=== PATIENT | male | born 1980 | race Two or more races ===

== ENCOUNTER 2016-10-11 08:21 | Emergency (ER) | payer BC, OTHER ==
[2016-10-11 08:25] VITALS: BP 148/82; PULSE 78; TEMP 98.5; BMI 50.2
[2016-10-11] MEDS ORDERED: CEPHALEXIN MONOHYDRATE 500 MG CAPSULE (UD) PO ONE (09:26)
--- NOTE | 2016-10-11 09:26 | PDOC ---
History of Present Illness - General Chief Complaint: Redness To Affected Area Stated Complaint: LT LEG PAIN Time Seen by Provider: 10/11/16 08:37 History Source: Patient Exam Limitations: No Limitations - History of Present Illness Initial Comments: 10/12/16 16:24 Chief complaint: Left redness with slight swelling History of present illness: Patient is a 35-year-old male with a history of hypertension here today due to patient having redness of left lower leg with tenderness area ankle. Patient reports that he had a fever 2 nights ago. 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 Patient reports that he had similar episode one year ago. Patient denies any history of MRSA. Patient does not have any draining wounds on his left lower leg. 10/12/16 16:26 Timing/Duration: getting worse (3 DAYS ) Severity: moderate Associated Symptoms: reports: fever/chills (2 NIGHTS AGO) Past History - Past Medical History Allergies/Adverse Reactions: Allergies Allergy/AdvReac Type Severity Reaction Status Date / Time No Known Allergies Allergy Verified 10/11/16 08:25 Home Medications: Ambulatory Orders Cephalexin Monohydrate [Keflex -] 500 mg PO Q6H #39 capsule 10/11/16 HTN: Yes Suicide Attempt (Hx): No - Psycho/Social/Smoking Cessation Hx Anxiety: No Suicidal Ideation: No Smoking History: Never smoked Hx Alcohol Use: Yes (SOCIAL) Drug/Substance Use Hx: No Substance Use Type: None Review of Systems - Review of Systems Able to Perform ROS?: Yes Constitutional: Yes: Fever (2 NIGHTS AGO) HEENTM: No: Symptoms Reported Respiratory: No: Symptoms reported Cardiac (ROS): No: Symptoms Reported ABD/GI: No: Symptoms Reported : No: Symptoms Reported Musculoskeletal: No: Symptoms Reported Integumentary: Yes: Other (pea on raised macules left anterior lower leg with surrounding erythema with minimal) *Physical Exam - Vital Signs Last Vital Signs Temp Pulse Resp BP Pulse Ox 98.5 F 78 20 148/82 98 10/11/16 08:22 10/11/16 08:22 10/11/16 08:22 10/11/16 08:22 10/11/16 08:22 - Physical Exam Extremity: positive: Normal Capillary Refill, Normal Range of Motion (left knee/ ankle ), Tender (left anterior lower leg/ankle ), Swelling (left anterior ankle ), Other (negative Homans' sign left leg) Integumentary: positive: Other (pea size raised macules left anterior lower leg with surrounding erythema with minimal edema left anterior ankle tender to touch , no open areas ) Neurologic: positive: Alert, Respond to painful stimul (left lower leg ), Responsive ED Treatment Course - LABORATORY CBC & Chemistry Diagram: 10/11/16 09:25 10/11/16 09:25 Medical Decision Making - Medical Decision Making 10/11/16 09:59 Patient is a 35-year-old male with a history of hypertension here today due to patient having redness of left lower leg with tenderness area ankle. Patient reports that he had a fever 2 nights ago. 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 Patient reports that he had similar episode one year ago. Patient denies any history of MRSA. Patient does not have any draining wounds on his left lower leg. left lower leg cellulitis 10/12/16 16:26 PLAN: cbc with diff bmp keflex 500 mg po now than every 6 hours X 10 days follow up with PCP Laboratory Tests 10/11/16 10/11/16 09:25 09:25 WBC 6.4 RBC 5.18 Hgb 14.4 Hct 43.0 MCV 83.1 MCHC 33.5 RDW 14.2 Plt Count 212 MPV 8.3 D Neutrophils % 67.3 Lymphocytes % 23.4 Monocytes % 7.1 Eosinophils % 1.8 Basophils % 0.4 Sodium 140 Potassium 3.8 Chloride 105 Carbon Dioxide 27 Anion Gap 8 BUN 15 Creatinine 1.0 Random Glucose 129 H D Calcium 8.6 pea on raised macules left anterior lower leg with surrounding erythema with minimal 10/11/16 09:59 10/12/16 16:27 *DC/Admit/Observation/Transfer Diagnosis at time of Disposition: Cellulitis Qualifiers: Site of cellulitis: extremity Site of cellulitis of extremity: lower extremity Laterality: left Qualified Code(s): L03.116 - Cellulitis of left lower limb - Discharge Dispostion Disposition: HOME Condition at time of disposition: Stable - Prescriptions Prescriptions: Cephalexin Monohydrate [Keflex -] 500 mg PO Q6H #39 capsule - Referrals Referrals: Bam Gray MD [Primary Care Provider] - - Patient Instructions Additional Instructions: follow up with your primary care provider within the next 2 days Return to emergency room if any fever or worsening redness and swelling of your legs Elevate her left leg as much as possible Take lactobacillus tablets as directed by order picker/assembler or eat a lot of yogurt Patient voiced understanding of discharge instructions and all questions were answered
[2016-10-11] MEDS ORDERED: CEPHALEXIN MONOHYDRATE 500 MG CAPSULE (UD) ONE (09:32)
[2016-10-11 09:34] LABS: BASOPHIL 0.4 % (0-2.0); EOSINOPHIL 1.8 % (0-4.5); MCH 27.8 pg (25.7-33.7); MCHC 33.5 g/dl (32.0-35.9); MEAN CELL VOLUME 83.1 fl (80-96); MEAN PLT VOLUME 8.3 fl (7.5-11.1); NEUTROPHILS 67.3 % (42.8-82.8); PLATELET COUNT 212 K/MM3 (134-434); RDW 14.2 % (11.9-15.9); WHITE BLOOD COUNT 6.4 K/mm3 (4.0-10.0)
[2016-10-11 09:54] LABS: CALCIUM 8.6 mg/dL (8.5-10.1)
== END 2016-10-11 10:11 | disposition home or self-care (01) ==
LOC: JERFT 08:21
DX: L03.116 Cellulitis of left lower limb (principal); I10 Essential (primary) hypertension
CPT/HCPCS: 36415; 80048; 85025; 99281-25

== ENCOUNTER 2017-10-28 05:05 | Emergency (ER) | payer OTHER ==
[2017-10-28] MEDS ORDERED: SODIUM CHLORIDE 0.9% 500 ML INFUS.BAG IV ONE (05:18)
[2017-10-28 05:24] VITALS: BMI 47.8
--- NOTE | 2017-10-28 05:27 | PDOC ---
History of Present Illness - General History Source: Patient - History of Present Illness Initial Comments: 10/28/17 05:27 36 year old male with a PMH of HTN (states it is diet controlled) presents to our ED c/o 2 week h/o intermittently productive (whitish sputum) cough and subjective fevers. Patient also notes resolved sore throat. States he has been taking Motrin and Nyquil with some relief of his symptoms. Denies chest pain and endorses HARRIS as chronic. 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 NKDA Surgical: denies Social: denies nicotine, denies recreational drugs PMD: Dr. Gray As per EMR, patient was evaluated in our facility in 2016 for unilateral LE redness and edema. <Constanza Lima - Last Filed: 10/28/17 22:47> <Marci Friend - Last Filed: 10/29/17 06:08> - General Stated Complaint: CHEST PAIN Time Seen by Provider: 10/28/17 05:07 Past History - Past Medical History HTN: Yes - Suicide/Smoking/Psychosocial Hx Smoking History: Never smoked Hx Alcohol Use: Yes (SOCIAL) Drug/Substance Use Hx: No Substance Use Type: None <Constanza Lima - Last Filed: 10/28/17 22:47> <Marci Friend - Last Filed: 10/29/17 06:08> - Past Medical History Allergies/Adverse Reactions: Allergies Allergy/AdvReac Type Severity Reaction Status Date / Time No Known Allergies Allergy Verified 10/28/17 05:25 Home Medications: Ambulatory Orders Valsartan/Hydrochlorothiazide [Diovan Hct 160-12.5 mg Tab] 1 each PO DAILY #14 tablet 10/28/17 Review of Systems - Review of Systems Constitutional: Yes: Fever. No: Chills HEENTM: No: Recent change in vision Respiratory: Yes: Cough, SOB with Exertion (baseline) Cardiac (ROS): No: Chest Pain, Lightheadedness, Palpitations, Syncope ABD/GI: No: Constipated, Diarrhea, Nausea, Vomiting : No: Burning, Dysuria <Constanza Lima - Last Filed: 10/28/17 22:47> *Physical Exam - Physical Exam General Appearance: Yes: Nourished, Obese HEENT: positive: EOMI, Pharyngeal Erythema. negative: Scleral Icterus (R), Scleral Icterus (L), Tonsillar Exudate, Tonsillar Erythema Neck: positive: Trachea midline, Supple Respiratory/Chest: positive: Lungs Clear Cardiovascular: positive: S1, S2. negative: Edema, JVD Gastrointestinal/Abdominal: positive: Normal Bowel Sounds, Soft Extremity: positive: Normal Capillary Refill, Normal Inspection Integumentary: positive: Normal Color, Dry, Warm <Constanza Lima - Last Filed: 10/28/17 22:47> - Vital Signs Last Vital Signs Temp Pulse Resp BP Pulse Ox 97.7 F 91 H 18 139/60 99 10/28/17 07:28 10/28/17 08:23 10/28/17 08:23 10/28/17 08:23 10/28/17 08:23 <Marci Friend - Last Filed: 10/29/17 06:08> ED Treatment Course - LABORATORY CBC & Chemistry Diagram: 10/28/17 05:44 10/28/17 07:25 <Constanza Lima - Last Filed: 10/28/17 22:47> - LABORATORY CBC & Chemistry Diagram: 10/28/17 05:44 10/28/17 07:25 - ADDITIONAL ORDERS Additional order review: 10/28/17 05:20 Influenza Types A,B Antigen (NILAY) - Final Nasopharyngeal Swab - Final 10/28/17 05:20 Group A Strep Rapid Antigen - Final Throat 10/28/17 05:44 RBC 5.19 MCV 83.2 MCHC 34.5 RDW 14.5 MPV 8.5 Neutrophils % 59.7 Lymphocytes % 25.0 Monocytes % 13.8 H D Eosinophils % 1.0 Basophils % 0.5 - Medications Given in the ED: ED Medications Discontinued Medications Generic Name Dose Route Start Last Admin Trade Name Freq PRN Reason Stop Dose Admin Sodium Chloride 1,000 ml 10/28/17 05:18 10/28/17 05:49 Normal Saline - IV 10/28/17 05:19 1,000 ml ONCE ONE Administration Valsartan 160 mg 10/28/17 06:16 10/28/17 06:23 Diovan - PO 10/28/17 06:17 160 mg ONCE ONE Administration <Marci Friend - Last Filed: 10/29/17 06:08> Medical Decision Making - Medical Decision Making 10/28/17 05:40 36 year old man presents with 2 week h/o intermittently productive cough and subjective fever. HARRIS @ baseline. Tachycardic (107) @ presentation, afebrile. Physical exam significant for pharyngeal erythema. Frontal diagnosis: PNA, bronchitis, Influenza, Strep Throat. Will obtain Influenza, Rapid Strep basic labs, ECG, CXR. 1 L IV NS. Reassess. 10/28/17 06:09 ECG shos HR 77, sinus arrythmia, no JANET/STD/TWI, good R wave progression V1-V6. Non ischemic ECG. 10/28/17 06:21 CBC negative for leukocytosis. 10/28/17 06:30 Rapid Strep and Influenza A negative. Patient to be signed out to Dr. Frias (Resident) and Dr. Krueger (Attending) - pending CXR, likely disposition is home. <Constanza Lima - Last Filed: 10/28/17 22:47> *DC/Admit/Observation/Transfer <Constanza Lima - Last Filed: 10/28/17 22:47> <Marci Friend - Last Filed: 10/29/17 06:08> Diagnosis at time of Disposition: URTI (acute upper respiratory infection) - Discharge Dispostion Disposition: HOME Condition at time of disposition: Good - Prescriptions Prescriptions: Valsartan/Hydrochlorothiazide [Diovan Hct 160-12.5 mg Tab] 1 each PO DAILY #14 tablet - Referrals Referrals: ON STAFF,NOT [Primary Care Provider] - - Patient Instructions Printed Discharge Instructions: DI for Viral Upper Respiratory Infection -- Adult Additional Instructions: You were seen here for symptoms of the upper airways We did a CXR and ran blood tests, swabs of your nose and throat that were within normal We recommend supportive mx- take pain medications as needed, increase your fluid intake We started you on blood pressure medications called "Diovan" please take them everyday. Please follow up with your primary doctor and let him know you were recently seen in the emergency room and started on blood pressure medications If you think your symptoms are getting worse with coughing up blood, being unable to breath, or have high fevers please go to the nearest emergency room
--- NOTE | 2017-10-28 05:45 | PDOC ---
Attending Attestation - HPI HPI: The patient is a 36 year old male with a significant past medical history of hypertension who presents to the emergency department for evaluation of cough and subjective fevers. The patient reports intermittent episodes of productive cough with whitish sputum occurring for 2 weeks. He admits taking Motrin and Nyquil with alleviation to some of his symptoms. The patient notes a resolved sore throat. The patient denies chest pain, shortness of breath, headache, and dizziness. Denies fevers, chills, nausea, vomiting, diarrhea, and constipation. Denies dysuria, frequency, urgency, and hematuria. Allergies: NKDA Social history: No reported cigarette or drug use. PCP: Dr. Gray <Darin Blanton - Last Filed: 10/28/17 05:50> - Resident Resident Name: Constanza Lima - ED Attending Attestation I have performed the following: I have examined & evaluated the patient, The case was reviewed & discussed with the resident, I agree w/resident's findings & plan - Physicial Exam PE: 10/28/17 06:38 Agree with resident exam - Medical Decision Making 10/28/17 06:51 Pt is morbidly obese. 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 Pt is aware of his unhealthy lifestyle. Pt is agreeable to taking antiHTN meds. Pt was given a dose of diovan in the ER. If he responds well and if chest XR is normal, he may go home. Pt has normal CBC, negative strep culture and flu culture. Pt awaiting chem result. 10/28/17 19:52 Pt signed out to the day team. <Marci Friend - Last Filed: 10/28/17 19:53> Attestations - Attestations Documentation prepared by Darin Blanton, acting as medical dermatologist for Marci Friend MD. <Darin Blanton - Last Filed: 10/28/17 05:50>
[2017-10-28 05:53] LABS: BASO % 0.5 % (0-2.0); HEMATOCRIT 43.1 % (35.4-49); HEMOGLOBIN 14.9 GM/dL (11.7-16.9); MCH 28.7 pg (25.7-33.7); MCHC 34.5 g/dl (32.0-35.9); MEAN CELL VOLUME 83.2 fl (80-96); MEAN PLT VOLUME 8.5 fl (7.5-11.1); MONO % 13.8 % (3.8-10.2); NEUT % 59.7 % (42.8-82.8); PLATELET COUNT 252 K/MM3 (134-434); RBC 5.19 M/mm3 (4.00-5.60); RDW 14.5 % (11.9-15.9); WHITE BLOOD COUNT 5.3 K/mm3 (4.0-10.0)
[2017-10-28] MEDS ORDERED: VALSARTAN 160 MG TABLET (UD) PO ONE (06:16)
[2017-10-28] MEDS ORDERED: VALSARTAN 80 MG TABLET (UD) ONE (06:20)
[2017-10-28 07:36] VITALS: TEMP 97.7
--- NOTE | 2017-10-28 07:44 | PDOC ---
*Physical Exam - Vital Signs Last Vital Signs Temp Pulse Resp BP Pulse Ox 98.1 F 107 H 18 149/80 98 10/28/17 05:20 10/28/17 05:20 10/28/17 05:20 10/28/17 05:20 10/28/17 05:20 10/28/17 07:32 Pt signed out to me pending CXR- PA and Lateral. ED Treatment Course - LABORATORY CBC & Chemistry Diagram: 10/28/17 05:44 10/28/17 07:25 - ADDITIONAL ORDERS Additional order review: 10/28/17 05:20 Influenza Types A,B Antigen (NILAY) - Final Nasopharyngeal Swab - Final 10/28/17 05:20 Group A Strep Rapid Antigen - Final Throat 10/28/17 05:44 RBC 5.19 MCV 83.2 MCHC 34.5 RDW 14.5 MPV 8.5 Neutrophils % 59.7 Lymphocytes % 25.0 Monocytes % 13.8 H D Eosinophils % 1.0 Basophils % 0.5 - Medications Given in the ED: ED Medications Discontinued Medications Generic Name Dose Route Start Last Admin Trade Name Freq PRN Reason Stop Dose Admin Sodium Chloride 1,000 ml 10/28/17 05:18 10/28/17 05:49 Normal Saline - IV 10/28/17 05:19 1,000 ml ONCE ONE Administration Valsartan 160 mg 10/28/17 06:16 10/28/17 06:23 Diovan - PO 10/28/17 06:17 160 mg ONCE ONE Administration Medical Decision Making - Medical Decision Making 10/28/17 07:33 Will await CXR to determine plans. Will mostly be discharged home . 10/28/17 08:08 No White count, CMP pending CXR- not formally read, but shows no infiltrates or acute pathology 10/28/17 08:18 CMP wnl except for minimally elevated transaminase Plan is to discharge patient home 10/28/17 08:32 Pt was also started on tabs Diovan Was given 2 weeks supply to follow up with his PCP on Sunday *DC/Admit/Observation/Transfer Diagnosis at time of Disposition: URTI (acute upper respiratory infection) - Discharge Dispostion Disposition: HOME Condition at time of disposition: Good - Prescriptions Prescriptions: Valsartan/Hydrochlorothiazide [Diovan Hct 160-12.5 mg Tab] 1 each PO DAILY #14 tablet - Referrals Referrals: ON STAFF,NOT [Primary Care Provider] - - Patient Instructions Printed Discharge Instructions: DI for Viral Upper Respiratory Infection -- Adult Additional Instructions: You were seen here for symptoms of the upper airways We did a CXR and ran blood tests, swabs of your nose and throat that were within normal We recommend supportive mx- take pain medications as needed, increase your fluid intake We started you on blood pressure medications called "Diovan" please take them everyday. Please follow up with your primary doctor and let him know you were recently seen in the emergency room and started on blood pressure medications If you think your symptoms are getting worse with coughing up blood, being unable to breath, or have high fevers please go to the nearest emergency room - Post Discharge Activity - Attestations Physician Attestion: 10/28/17 08:19 Nguyen Frias MD
[2017-10-28 08:11] LABS: ALBUMIN 3.8 g/dl (3.4-5.0); ANION GAP 9 (8-16); BILIRUBIN,TOTAL 0.2 mg/dL (0.2-1.0); BLOOD UREA NITROGEN 13 mg/dL (7-18); CALCIUM 8.3 mg/dL (8.5-10.1); CHLORIDE 107 mmol/L (98-107); CO2 26 mmol/L (21-32); GLUCOSE,RANDOM 75 mg/dL (74-106); SGPT/ALT 47 U/L (12-78); SODIUM 142 mmol/L (136-145); TOT PROT 7.9 g/dl (6.4-8.2)
[2017-10-28 08:12] LABS: ALK PHOS 108 U/L (45-117)
[2017-10-28 08:15] LABS: POTASSIUM 4.2 mmol/L (3.5-5.1)
[2017-10-28 08:16] LABS: SGOT/AST 40 U/L (15-37)
[2017-10-28 08:24] VITALS: BP 139/60; PULSE 91
--- NOTE | 2017-10-28 08:37 | EKG ---
Test Reason : Blood Pressure : / mmHG Vent. Rate : 077 BPM Atrial Rate : 077 BPM P-R Int : 128 ms QRS Dur : 088 ms QT Int : 382 ms P-R-T Axes : 054 020 045 degrees QTc Int : 432 ms NORMAL SINUS RHYTHM WITH SINUS ARRHYTHMIA NORMAL ECG NO PREVIOUS ECGS AVAILABLE Confirmed by DAR BUSTILLO, KUNAL ([id number]) on 10/28/2017 8:36:34 AM Referred By: Confirmed By:KUNAL DODGE MD
== END 2017-10-28 08:27 | disposition home or self-care (01) ==
LOC: JER 05:05
DX: J06.9 Acute upper respiratory infection, unspecified (principal); I10 Essential (primary) hypertension
CPT/HCPCS: 36415; 71046-TC-FY; 80053; 85025; 87070; 87430; 87804; 93005; 93010; 99283-25